=== PATIENT | female | born 1930 | race Caucasian/White ===

== ENCOUNTER 2017-06-23 18:58 | Inpatient (IN) | payer MEDICARE, BC ==
[2017-06-23 20:58] VITALS: BP 143/82
[2017-06-23] MEDS: PRAVASTATIN SODIUM 40 MG PO SCH ×2 (21:11→22:31)
[2017-06-24] MEDS: INSULIN ASPART SLIDING SCALE 100 UNITS/ML UNIT SUBQ SCH ×4 (07:00→21:46)
[2017-06-24] MEDS ORDERED: INSULIN ASPART SLIDING SCALE 100 UNITS/ML UNIT SUBQ PRN (07:30)
--- NOTE | 2017-06-25 01:07 | History & Physical ---
ADMIT DATE: 06/24/2017 REASON FOR ADMISSION: Psychiatric disorder. HISTORY OF PRESENT ILLNESS: This is an 86-year-old female with underlying history of hyperlipidemia, diabetes, hypertension, and Alzheimer dementia, lives at home with family, was admitted to [facility] for underlying psychiatric illness . The patient denies any medical complaints or concern, so family was at the bedside. Family was present during the encounter, denies any medical complaints. PAST MEDICAL HISTORY: As per HPI. PAST SURGICAL HISTORY: None reported. SOCIAL HISTORY: Lives at home. No reported alcohol or tobacco use. CURRENT MEDICATIONS: On Januvia, Zocor, Zyprexa, Namenda, Cozaar, Ativan, Aricept, Tylenol. REVIEW OF SYSTEMS: All 12-point system reviewed, appeared to be negative. PHYSICAL EXAMINATION: VITAL SIGNS: Temperature 97.4, pulse 71, respirations 18, blood pressure 130/76. GENERAL APPEARANCE: The patient does not seem to be in acute distress. HEART: S1, S2 normal. LUNGS: Clear to auscultation. ABDOMEN: Soft. EXTREMITIES: No edema. ASSESSMENT: 1. Hypertension, stable. 2. Diabetes mellitus, stable. 3. Hyperlipidemia. 4. Alzheimer dementia. 5 PLAN: Patient is medically stable. Continue current treatments. The patient will continue Cozaar, Aricept, Namenda, Zyprexa, Zoloft, Zocor, and Januvia. Family was updated on plan of care. Psych management per psychiatrist JOB# [id number] MTDD
--- NOTE | 2017-06-25 01:45 | Psychosocial Evaluation ---
DATE OF SERVICE: 06/24/2017 IDENTIFYING DATA: The patient is an 86-year-old woman admitted here on a voluntary basis from [facility] because of acute confusion and agitation. Chart is reviewed. The patient is interviewed. CHIEF COMPLAINT: "I don't know." HISTORY OF PRESENT ILLNESS: This is the first psychiatric hospitalization to the [facility] for this patient who is reported to have been acutely agitated and has been confused and is not making much sense. The patient's family has been having difficult time to deal with the patient. The patient has been brought over here after she was transferred from the [facility]. The patient is reported to have been admitted to the [facility] in [place] on 06/20 when found with altered level of mental status, rule out a CVA and psychosis. The patient at the time is noted to be very agitated and is paranoid. I tried to get some information from the patient, but the patient has been very guarded, suspicious and has not been able to provide much of information. The patient is reported to have been at the [facility] recently and was started on Zyprexa. The patient is reported to be noncompliant with the medication and has displayed a catatonic-like behavior and refusing to eat food. The patient has not had any psychiatric followups. Sleep and appetite prior to the hospitalization are reported to be poor. The patient is also reported to have presented with altered level of consciousness. PAST PSYCHIATRIC HISTORY: The patient is reported to have been treated with the Zyprexa recently. The patient is also reported to have been on Zoloft and the patient's compliance to medication is noted to be poor. MEDICAL HISTORY: Physical examination is requested and done by Dr. Harp. The patient is reported to have a history of CVA and a recent history of intracranial hemorrhage. The patient has a history of elevated lipids and hypertension. SUBSTANCE ABUSE HISTORY: None. SOCIAL HISTORY: The patient is being taken care of at home by the family members, particularly her and son. The patient is reported to have been declining for the past 2-3 months. MENTAL STATUS EXAMINATION: The patient is an 86-year-old woman looking her stated age, superficially cooperative. The patient is saying one word or two words and then she is keeping quiet. The patient's coping skills at this time are noted to be very poor. The patient is paranoid. The patient is reported to have been responding to internal stimuli. I am not able to get detailed information with regards to the patient's cognition because the patient is refusing to answer the questions. The patient has a history of being combative at this times. The patient is reported to have been brought to the hospital because of altered level of consciousness where she was mentioning "she was talking to God all the time" and the patient has not been able to give detailed information why she needs to be in the hospital. DIAGNOSTIC IMPRESSION: AXIS I: Psychotic disorder, not otherwise specified. B. Dementia and behavioral disturbance. AXIS II: None. AXIS III: As per Dr. Harp. IMMEDIATE TREATMENT PLAN: The patient is going to be closely monitored and encouraged to participate in the groups and verbalized the concerns. Once stabilized, the patient is going to be discharged to [facility] to be followed up on an outpatient basis. JOB# [id number]
[2017-06-25] MEDS: INSULIN ASPART SLIDING SCALE 100 UNITS/ML UNIT SUBQ SCH ×4 (06:36→21:32)
--- NOTE | 2017-06-26 02:06 | Progress Notes ---
DATE: 06/25/2017 SUBJECTIVE: Staff was spoken to. The patient is interviewed. Mood is noted to be dysphoric. Coping skills are noted to be very poor. The patient has paranoid delusions. Insight and judgment are noted to be still impaired. Impulse control is noted very poor. The patient is currently on olanzapine 5 mg and sertraline 100 mg in the morning. No side effects to the medications are noted. The patient is isolative and withdrawn and is not communicating much at this time. ASSESSMENT: The patient is still psychotic. PLAN: Continue the patient with the current medications and follow up. JOB# [id number]
[2017-06-26] MEDS: INSULIN ASPART SLIDING SCALE 100 UNITS/ML UNIT SUBQ SCH ×4 (06:47→23:14)
--- NOTE | 2017-06-26 13:35 | Progress Notes ---
DATE: 06/26/2017 SUBJECTIVE: Staff was spoken to. The patient is interviewed. Mood is noted to be depressed. Affect is constricted. The patient is isolative and withdrawn. The patient is paranoid and is refusing to comply with the medications. No side effects to medications are noted. The patient is currently on olanzapine 5 mg at bedtime and sertraline 100 mg in the morning. ASSESSMENT: The patient is depressed and psychotic. PLAN: To continue the patient with the current medications. I encouraged the patient to verbalize the concerns rather than to act out. JOB# [id number]
[2017-06-27] MEDS: INSULIN ASPART SLIDING SCALE 100 UNITS/ML UNIT SUBQ SCH ×5 (06:30→21:54)
--- NOTE | 2017-06-27 19:24 | Progress Notes ---
DATE: 06/27/2017 SUBJECTIVE: Staff was spoken to. The patient is interviewed. Mood is noted to be irritable. Affect is constricted. The patient is refusing to comply with the treatment. Coping skills at this time are noted to be very poor. The patient has been having difficult time to cope with the stress. ASSESSMENT: The patient is still grossly psychotic and confused and demented. PLAN: To continue the patient with the Zyprexa. I encouraged the patient to verbalize the concerns rather than to act out. JOB# [id number]
[2017-06-28] MEDS: INSULIN ASPART SLIDING SCALE 100 UNITS/ML UNIT SUBQ SCH ×4 (07:04→21:34)
--- NOTE | 2017-06-28 19:02 | Progress Notes ---
DATE: 06/28/2017 SUBJECTIVE: Staff was spoken to. The patient is interviewed. Mood is little bit depressed. Affect is constricted. The patient's insight and judgment at this time are noted to be still impaired. Impulse control seems to be limited. The patient's and son were met yesterday, they are very much worried with the patient's confusion and not able to care for self. The patient's on the other hand, he does not seem to understand the gravity of the situation ____ the patient is still not able to care for self. ASSESSMENT: The patient is still grossly psychotic and demented. PLAN: To continue the patient with the current medications and followup. [facility]# [id number]
[2017-06-29] MEDS: INSULIN ASPART SLIDING SCALE 100 UNITS/ML UNIT SUBQ SCH ×4 (06:51→21:06)
--- NOTE | 2017-06-29 15:58 | Progress Notes ---
DATE: 06/29/2017 TIME PATIENT SEEN: Staff was spoken to. The patient is interviewed. Mood is noted to be irritable. Affect is constricted. The patient has short-term as well as long-term memory deficits. Her has been in here who states that she has been doing fairly well and he can handle her at home. The patient's has no clue of the patient's behavior. ASSESSMENT: The patient is still impulsive, paranoid and demented. PLAN: To continue the patient with current medications and followup. The patient is not ready to be discharged to lower level of care at this time. [facility]# [id number]
[2017-06-30] MEDS: INSULIN ASPART SLIDING SCALE 100 UNITS/ML UNIT SUBQ SCH ×4 (06:41→21:32)
--- NOTE | 2017-06-30 14:44 | Progress Notes ---
DATE: 06/30/2017 SUBJECTIVE: Staff was spoken to. The patient is interviewed. Mood is noted to be irritable. Affect is constricted. The patient has been having difficulty with the short term memory. The patient at one minute is stating that she is doing fine and she needs to get out of here and the next minute, she states she does not know anything. The patient has been having these memory issues. The patient's coping skills are noted to be very poor. The patient's is insisting that the patient should be discharged to ____ care. ASSESSMENT: The patient is still demented and psychotic. PLAN: To continue the patient with the supportive therapy and continue the patient with the Zyprexa and follow the patient. [facility]# [id number]
[2017-07-01] MEDS: INSULIN ASPART SLIDING SCALE 100 UNITS/ML UNIT SUBQ SCH ×4 (06:46→21:07)
--- NOTE | 2017-07-01 10:27 | Progress Notes ---
DATE: 07/01/2017 SUBJECTIVE: Staff was spoken to. The patient is interviewed. Mood is noted to be irritable. Affect is constricted. The patient has been pacing on the unit. The patient is stating that she is 89 years old. She has too many appointments. She needs to leave. The patient has been banging on the doors. Coping skills at this time are noted to be extremely poor. No side effects to the medications are noted. The patient is still grossly psychotic and confused at this time. ASSESSMENT: The patient is still impulsive. PLAN: To continue patient with the supportive therapy, encouraged the patient to verbalize the concerns rather than to act out. [facility]# [id number]
--- NOTE | 2017-07-01 21:32 | General Progress Note ---
Subjective - Review of Systems Service Date: 07/01/17 Subjective: patient seen and examined feels better Objective - Results Recent Labs: Laboratory Last Values POC Glucose 132 MG/DL (70 - 105) H 07/01/17 11:32 - Physical Exam Vitals and I&O: Vital Signs Temp 97.2 F 06/30/17 20:00 Pulse 113 07/01/17 09:00 Resp 20 07/01/17 08:00 BP 133/93 07/01/17 09:00 Pulse Ox 96 06/30/17 20:00 Intake & Output 07/01/17 07/01/17 07/02/17 06:59 18:59 06:59 Intake Total 120 800 Balance 120 800 Intake: Oral 120 800 Other: # Voids 3 2 Active Medications: Current Medications Acetaminophen (Tylenol) 650 mg PO Q4HR PRN PRN Reason: Pain or temp greater 101F Stop: 08/22/17 20:59 Donepezil HCl (Aricept) 10 mg PO HS [facility] Stop: 08/23/17 20:59 Last Admin: 07/01/17 20:51 Dose: 10 mg Insulin Aspart (Novolog Insulin Sliding Scale) 0 units SUBQ ACHS SADI PRN Reason: Protocol Stop: 08/23/17 07:29 Last Admin: 07/01/17 21:07 Dose: Not Given Lorazepam (Ativan) 0.5 mg PO Q6HR PRN; Protocol PRN Reason: Anxiety Stop: 08/23/17 00:00 Last Admin: 06/28/17 20:36 Dose: 0.5 mg Losartan Potassium (Cozaar) 50 mg PO DAILY SADI Stop: 08/23/17 08:59 Last Admin: 07/01/17 09:00 Dose: 50 mg Memantine (Namenda) 10 mg PO BID SADI Stop: 08/23/17 08:59 Last Admin: 07/01/17 17:49 Dose: 10 mg Olanzapine (Zyprexa) 5 mg PO HS SADI PRN Reason: Protocol Stop: 08/23/17 20:59 Last Admin: 07/01/17 20:51 Dose: 5 mg Sertraline HCl (Zoloft) 100 mg PO DAILY SADI Stop: 08/23/17 08:59 Last Admin: 07/01/17 09:00 Dose: 100 mg Simvastatin (Zocor) 40 mg PO HS SADI Stop: 08/22/17 21:29 Last Admin: 07/01/17 20:51 Dose: 40 mg Sitagliptin Phosphate (Januvia) 50 mg PO QPM 1700 SADI Stop: 08/23/17 16:59 Last Admin: 07/01/17 17:49 Dose: 50 mg Cardiovascular: Regular rate Lungs: Clear to auscultation Assessment/Plan - Assessment Assessment: HTN Hyperlipidemia Psych disorder AD - Plan Plan: Continue current meds Psych follow up Nutritional Asmnt/Malnutr-PDOC - Dietary Evaluation Malnutrition Findings (Please click <Entered> for more info): Nutritional Asmnt/Malnutrition Start: 06/30/17 13: 34 Text: Status: Complete Freq: Document 06/30/17 13:34 MARGRET (Rec: 06/30/17 13:43 [id number] [id number]) Nutritional Asmnt/Malnutrition Patient General Information Nutritional Screening Low Risk Diagnosis psychosis Pertinent Medical Hx/Surgical Hx hyperlipiedemia, DM, HTN, alzheimer dementia Subjective Information Pt seen sitting in dinning room with visiting during the time of visit. Per , pt eats well, good appetite, pt likes juice and milk, no question or concern about current diet or food. Per notes, PO intake 75-100%, meeting nutritional needs. Current Diet Order/ Nutrition Support Regular Pertinent Medications novolog Pertinent Labs POC 81-145 in last 2 days Nutritional Hx/Data Height 1.7 m Height (Calculated Centimeters) 170.2 Current Weight (lbs) 71.532 kg Weight (Calculated Kilograms) 71.5 Weight (Calculated Grams) 23280.5 [place] Body Weight 135 % [place] Body Weight 117 Body Mass Index (BMI) 24.7 GI Symptoms GI Symptoms None Last BM 06/29 Difficult in: None Skin Integrity/Comment: intact Current %PO Good (75-100%) Estimated Nutritional Goals BEE in Kcals: Using Current wt Calories/Kcals/Kg 25-30 Kcals Calculated 2193-4680 Protein: Using Current wt Protein g/k Protein Calculated 72 Fluid: ml 0242-7046 Nutritional Problem No current Nutrition Prob Problem n/A Intervention/Recommendation Comments 1. Continue with regular diet as ordered. 2. Monitor PO intake, wt, labs and skin integrity 3. F/U as low risk in 7d ays, 1/3 Expected Outcomes/Goals Expected Outcomes/Goals 1. PO intake to meet at least 75% of nutritional needs. 2. Wt stability, skin to remain intact, labs to approach WNL.
[2017-07-02] MEDS: INSULIN ASPART SLIDING SCALE 100 UNITS/ML UNIT SUBQ SCH ×4 (06:29→21:11)
--- NOTE | 2017-07-02 21:26 | Progress Notes ---
DATE: 07/02/2017 SUBJECTIVE: Staff was spoken to. The patient is interviewed. Mood is noted to be depressed. Affect is constricted. The patient is pacing on the unit. The patient has been having acute mood swings and crying spells. The patient's has been in here and patient's states that he would like to take the to home. The patient's son has been mentioning that they do not want the patient to be discharged to the care of the father. They want to come in and talk to. The patient's has been mentioned the same thing and he is advised to bring his son to the unit so that we can come up with the discharge. PLAN: No side effects to the medications are noted. The patient is currently on Zoloft and Zyprexa and has been able to tolerate. JOB# [id number]
[2017-07-03] MEDS: INSULIN ASPART SLIDING SCALE 100 UNITS/ML UNIT SUBQ SCH ×4 (07:06→21:08)
--- NOTE | 2017-07-03 15:37 | Progress Notes ---
DATE: 07/03/2017 SUBJECTIVE: Staff was spoken to. The patient is interviewed. Mood is noted to be irritable. Affect is constricted. The patient has been having confusion, but the patient at this time is noted to be elucidated. The patient's has been fixated on getting the patient home. The patient's son has been spoken to and he is stating that he has to go back to work on Wednesday and he cannot be there at home to help the father. The patient's is also elderly and he is fixated on taking her home. No side effects to the medications are noted at this time. ASSESSMENT: The patient is still grossly psychotic. PLAN: To continue the patient with the supportive therapy, encouraged the patient to verbalize the concerns. The patient is currently on Zyprexa and is able to tolerate the medication. JOB# [id number]
[2017-07-04] MEDS: INSULIN ASPART SLIDING SCALE 100 UNITS/ML UNIT SUBQ SCH ×2 (06:43→12:18)
--- NOTE | 2017-07-04 17:35 | Discharge Summary ---
DATE OF DISCHARGE: 07/04/2017 IDENTIFYING DATA: The patient is an 86-year-old woman admitted here on a voluntary basis in view of her confusion and agitation. Chart is reviewed. The patient is interviewed. CHIEF COMPLAINT: "I don't know." DIAGNOSES AT THE TIME OF ADMISSION: AXIS IA: Psychotic disorder, not otherwise specified. AXIS IB: Dementia and behavioral disturbance. AXIS II: None. AXIS III: As per Dr. Harp. HISTORY OF PRESENT ILLNESS: Please refer to the 06/24/2017 dictation done by me. Physical examination was done by Dr. Harp and is noted to be significant for hypertension, diabetes mellitus, and hyperlipidemia. HOSPITAL COURSE AND RESPONSE TO TREATMENT: The patient has been observed on inpatient unit, provided with supportive psychotherapy. The patient has been started on the ____ 10 mg at bedtime along with Namenda 10 mg b.i.d. Olanzapine has been given 5 mg. Sertraline has been given 100 mg in the morning for her depression and the patient also has been continued on simvastatin 40 mg. The patient's blood work has been reviewed and the glucose has been running at 118-143 and the patient has been closely monitored and was noted to be doing fairly well. The patient has been constantly worrying about her being discharged and the patient has been finally discharged on 07/04/2017 since they mentioned that they have a 24-hour caregiver and the patient is advised to be followed up on an outpatient basis. MENTAL STATUS EXAMINATION: At the time of the discharge, the patient's mood was noted to be less irritable. Affect is appropriate. Not suicidal or homicidal. Insight and judgment noted to be improving. Impulse control seems to be fair. Coping skills are also noted to be fair. No side effects to the medications are noted. The patient has been able to verbalize the concerns rather than to act out. CONDITION: At the time of discharge is noted to be stable. The patient has sundowning syndrome, but the patient however has been able to verbalize her concerns. The patient could be redirected. No side effects to the medications are noted at the time of the discharge. The patient still has short-term as well as long-term memory deficits, but the patient, however, could be redirected. DIAGNOSTIC IMPRESSION: AXIS IA: Psychosis, not otherwise specified. AXIS IB: Dementia and behavioral change, secondary trait. AXIS II: None. AXIS III: Hypertension, diabetes mellitus, and hyperlipidemia. AFTERCARE PLAN: The patient is discharged to self to be followed up on an outpatient basis. JOB# [id number]
== END 2017-07-04 16:20 | disposition home or self-care (01) | DRG 885 ==
LOC: GERO 18:58
PROVIDERS: ADMIT Psychiatry & Neurology Psychiatry; ATTEND Psychiatry & Neurology Psychiatry
DX: F29 Unspecified psychosis not due to a substance or known physiological condition (principal); E11.9 Type 2 diabetes mellitus without complications; G30.9 Alzheimer's disease, unspecified; F02.81 Dementia in other diseases classified elsewhere, unspecified severity, with behavioral disturbance; I10 Essential (primary) hypertension; E78.5 Hyperlipidemia, unspecified; Z79.899 Other long term (current) drug therapy; Z88.8 Allergy status to other drugs, medicaments and biological substances
CPT/HCPCS: 82948-90; J1815; J7051; Z7610